=== PATIENT | female | born 1995 | race Caucasian/White ===

== ENCOUNTER 2021-10-30 17:54 | Emergency (ER) | payer OTHER ==
[2021-10-30 19:03] LABS: HEMOGLOBIN 13.6 gm/dl (12.3-15.3); RED BLOOD COUNT 4.17 M/UL (4.00-5.10); WHITE BLOOD COUNT 6.4 K/UL (4.5-11.0)
[2021-10-30 19:36] LABS: BUN/CREATININE RATIO 12 (0-10)
== END 2021-10-30 21:11 | disposition left against medical advice (07) ==
LOC: ER1 17:54
PROVIDERS: Physician Assistant Medical
DX: O20.0 Threatened abortion (principal); Z3A.01 Less than 8 weeks gestation of pregnancy
CPT/HCPCS: 76817; 80053; 81001; 84702; 85025; 85610; 86900; 86901; 99283